=== PATIENT | female | born 1980 | race Caucasian/White ===

== ENCOUNTER → 2020-07-16 | Outpatient (CLI) | payer OTHER ==
[~2020-07-16] MED LIST: DOXYCYCLINE 10100 MG PO
== END ==
LOC: MC.RAD 08:00
DX: Z12.31 Encounter for screening mammogram for malignant neoplasm of breast (principal)

== ENCOUNTER 2021-12-24 11:35 | Inpatient (IN) | payer OTHER ==
[~2021-12-24] VITALS: Ht 165.1 cm; Wt 94.1 kg
[2021-12-24] VITALS (24 sets, daily range): BP systolic 122–147; BP diastolic 63–110; PULSE 66–111; TEMP 98.1–98.2
[2021-12-24 12:42] LABS: BASO % 0.3 % (0.0-2.0); EOS # 0.1 K/mm3 (0.0-0.7); EOS % 0.5 % (0.0-4.0); GRAN # 7.1 K/mm3 (1.4-6.5); GRAN % 69.6 % (42.2-75.2); HEMOGLOBIN 11.3 g/dl (12.5-16.0); LYMPH # 2.1 K/mm3 (1.2-3.4); LYMPH % 20.8 % (20.0-51.0); MEAN CELL VOLUME 85 fl (80.0-100.0); MEAN CORPUSCULAR HEMOGLOBIN 29 pg (27-31); MEAN CORPUSCULAR HGB CONC 34 g/dl (33.0-37.0); MEAN PLATELET VOLUME 14.3 fl (7.4-10.4); MONO # 0.8 K/mm3 (0.1-0.6); MONO % 8.3 % (1.7-9.3); PLATELET COUNT 181 K/mm3 (130-400); RED BLOOD COUNT 3.91 M/mm3 (4.10-5.30); REDCELL DISTRIBUTION WIDTH-CV 13.3 % (11.5-14.5)
[2021-12-24 12:46] LABS: HEMATOCRIT 33.3 % (37.0-47.0)
[2021-12-24 13:08] LABS: ALBUMIN 2.9 gm/dL (3.5-5.0); BILIRUBIN,TOTAL 0.5 mg/dL (0.2-1.2); CALCIUM 8.9 mg/dL (8.4-10.2); CREATININE, serum 0.77 mg/dL (0.57-1.11); POTASSIUM 3.9 mmol/L (3.5-4.5); TOTAL PROTEIN 6.9 gm/dL (6.2-8.1)
--- NOTE | 2021-12-24 13:30 | NUR ---
THIS RN GETS REPORT FROM Beverly AKHTAR RN. [id number] THIS RN CALLS Geo ADHIKARI FOR PT'S REQUEST FOR EPIDURAL.
--- NOTE | 2021-12-24 13:32 | NUR ---
1150 PATIENT HERE FROM OFFICE FOR INDUCTION DUE TO BPP 4 OUT OF 8. EFM ON FHT 120 BABY ACTIVE. CONTRACTIONS IRREGULAR BUT MILD. ASSESSMENT COMPLETED. PATIENT TEARY EYED ABOUT INDUCTION. CONSENTS SIGNED WITH VERBAL UNDERSTANDING. AT BEDSIDE.
--- NOTE | 2021-12-24 13:35 | NUR ---
1220 DR HAAS AT BEDSIDE. DISCUSS INDUCTION PROCEDURE WITH PATIENT AND . VERBAL UNDERSTANDING NOTED. SVE AROM WITH AMNIOHOOK CLEAR ODORLESS FLUID NOTED.
--- NOTE | 2021-12-24 13:37 | NUR ---
1230 PITOCIN STARTED PER PROTOCOL PER ORDER.
--- NOTE | 2021-12-24 13:41 | NUR ---
1330 REPORT GIVEN TO A MINDY RN TO ASSUME CARE OF PATIENT AT THIS TIME.
[2021-12-24] MEDS ORDERED: MOTRIN 800800 MG/TAB PO (15:14)
--- NOTE | 2021-12-24 16:36 | NUR ---
1510 DEEP VARIABLE DECELERATION NOTED ON FHR MONITOR. 1513 DR WALDO SALAZAR 8/100/0. 1520 DEEP VARIABLE DECELERATION NOTED. PITOCIN SHUT OFF. [address] HAAS 9100/+1. PT LAID RIGHT LATERAL WITH LEFT LEG IN STIRRUP. 1535 DR WALDO SALAZAR 100/+2. NURSERY NURSE AND CHARGE NURSE CALLED IN FOR DELIVERY. 1546 SPONTANEOUS VAGINAL DELIVERY OF VIABLE FEMALE INFANT. BULB SUCTIONED AND STIMULATED. INFANT LETS OUT STRONG CRY. INFANT PLACED ON MOTHER'S ABDOMEN. CORD CLAMPED AND CUT BY DR HAAS. S TECH TAKES OVER CARE OF INFANT. TAKEN TO WARMER TO BE WRAPPED UP AND PLACED ON MOTHER'S CHEST PER REQUEST OF THE PATIENT. CORD BLOOD COLLECTED FOR LAB. 1549 SPONTANEOUS DELIVERY OF PLACENTA. PITOCIN BOLUS STARTED PER PROTOCOL. SMALL VAGINAL LACERATION REPAIRED BY DR VASQUEZ. FUNDAL MASSAGE DONE. SCANT AMT OF BLEEDING NOTED. PERICARE DONE. BED PUT TOGETHER. PT REPOSITIONED. CLEAN PAD PLACED. PLAN OF CARE DISCUSSED. PT VERBALIZES UNDERSTANDING. CALL LIGHT WITHIN REACH.
[2021-12-24 17:05] LABS: COLLECTION METHOD CLEAN CATCH
[2021-12-24 17:19] LABS: PH 6 (5-8); SQUAMOUS EPITHELIAL 0-2 /hpf (0-10); URINE APPEARANCE Hazy (CLEAR/HAZY); URINE BACTERIA Rare /hpf (NONE SEEN); URINE BLOOD 2+ (NEGATIVE); URINE COLOR Yellow (YELLOW); URINE GLUCOSE Negative (NEGATIVE); URINE KETONE Negative (NEGATIVE); URINE NITRATE Negative (NEGATIVE); URINE PROTEIN(semi-quant) Negative (NEGATIVE); URINE RBC 0-2 /hpf (0-2); URINE UROBILINOGEN Negative (NEGATIVE); URINE WBC 0-2 /hpf (0-2)
--- NOTE | 2021-12-24 19:21 | NUR ---
@1900 PT AMBULATED TO THE BATHROOM WITH RN ASSISTANCE. PATIENT ASSISTED WITH TIM CARE, PAD CHANGED APPLIED WITH MESH PANTIES. PATIENT TRANSPORTED TO [id number] VIA WHEELCHAIR ALONG WITH BELONGING THAT HER SPOUSE CARRIED. NURSERY NURSE MET ME IN THE ROOM WITH BABY I ASSISTED PT TO THE BED. PATIENT ORENTED TO THE ROOM. CALL LIGHT AND TABLE ARE BOTH WITHIN REACH, BED POSITIONED LOW WITH WHEELS LOCKED.
[2021-12-25] VITALS: BP 127/68; PULSE 82; TEMP 98.2
[2021-12-25 04:00] VITALS: BP 119/78; PULSE 66; TEMP 98
[2021-12-25 07:57] VITALS: BP 121/71; PULSE 92
--- NOTE | 2021-12-25 09:41 | NUR ---
Initial visit; Parents thanked Property Field Adjuster for offering congratulations and Blessings for the of their daughter. Property Field Adjuster thanked family for choosing [facility].
== END 2021-12-25 17:42 | disposition home or self-care (01) | DRG 807 ==
LOC: LDR 11:35 → OB 11:35
PROVIDERS: ADMIT Obstetrics & Gynecology
PROC: 10E0XZZ Delivery of Products of Conception, External Approach (ICD-10-PCS; principal; 2021-12-24)
PROC: 10907ZC Drainage of Amniotic Fluid, Therapeutic from Products of Conception, Via Natural or Artificial Opening (ICD-10-PCS; 2021-12-24)
PROC: 3E033VJ Introduction of Other Hormone into Peripheral Vein, Percutaneous Approach (ICD-10-PCS; 2021-12-24)
PROC: 0HQ9XZZ Repair Perineum Skin, External Approach (ICD-10-PCS; 2021-12-24)
DX: O69.81X0 Labor and delivery complicated by cord around neck, without compression, not applicable or unspecified (principal); Z37.0 Single live birth; Z3A.38 38 weeks gestation of pregnancy; Z86.16 Personal history of COVID-19; O70.0 First degree perineal laceration during delivery
CPT/HCPCS: J2590; J2795; J7120

== ENCOUNTER → 2022-01-07 | Outpatient (CLI) | payer OTHER ==
[~2022-01-07] MED LIST changes: +MOTRIN 800800 MG/TAB PO
== END ==
LOC: COL.RAD 09:35
DX: R22.2 Localized swelling, mass and lump, trunk (principal)